=== PATIENT | female | born 1960 | race Hispanic/Latino ===

== ENCOUNTER 2016-07-10 14:39 | Outpatient (CLI) | payer BC ==
--- NOTE | 2016-07-11 09:37 | Mammography Report ---
BILATERAL DIGITAL SCREENING MAMMOGRAM with CAD: 07/10/16 14:39:00 CLINICAL: Routine screening.Breast cancer survivor status post left partial mastectomy December 2014 followed by radiation therapy. COMPARISON:07/04/15 FINDINGS: The breasts are almost entirely fatty with the left breast smaller than the right.A few bilateral scattered benign calcifications. No mass, architectural distortion or suspicious calcifications. IMPRESSION: No mammographic evidence of malignancy. BI-RADS CATEGORY: 2 - - Benign RECOMMENDATION: Routine mammographic screening in one year. COMMENT: Patient follow-up letters are generated by our [employer] application.
== END 2016-07-10 14:40 | disposition home or self-care (01) ==
LOC: SPVWC 14:39
PROVIDERS: ATTEND Surgery
DX: Z12.31 Encounter for screening mammogram for malignant neoplasm of breast (principal)
CPT/HCPCS: 77067; G0202

== ENCOUNTER 2019-05-14 12:48 | Outpatient (CLI) | payer MEDICAID ==
--- NOTE | 2019-05-14 14:17 | Ultrasound Report ---
LEFT BREAST ULTRASOUND HISTORY: Left breast cancer and suspicious left axillary lymph nodes by MRI. Her MRI was done at [facility]. She had a left stereotactic breast biopsy here on 01/01/2019 with pathology confirming intermed iate grade DCIS. COMPARISON: None. FINDINGS: Sonographic evaluation focused upon the axillary location of the left breast demonstrates a suspicious lymph node with no central fat measuring 1.2 cm maximum. IMPRESSION: A suspicious left axillary lymph node. Recommend ultrasound-guided needle biopsy. BIRADS 4: Suspicious abnormality. Signer Name: Jim Randolph MD Signed: 05/14/2019 2:13 PM Workstation Name: [id number]
--- NOTE | 2019-05-14 14:19 | Ultrasound Report ---
ULTRASOUND-GUIDED NEEDLE CORE BIOPSY LEFT AXILLARY LYMPH NODE WITH CLIP PLACEMENT CLINICAL: Left breast cancer. FINDINGS: The procedure was explained to the patient and informed consent was obtained. Ultrasound demonstrated a previously identified suspicious lymph nodes.. I marked the breast with a felt tip marker and a timeout was called. The skin was prepped with Chloro -Prep and anesthetized with 1% lidocaine. Needle core biopsy was performed through small dermatotomy using ultrasound guidance, 2% lidocaine wi th epinephrine for deep anesthesia and a 18-gauge Achieve biopsy device. 3 cores were obtained and pl aced in formalin. A clip was deployed within the lymph node. The patient tolerated the procedure well and there were no apparent complications. Hemostasis was ach ieved with minimal effort and a sterile dressing was applied. A post procedure mammogram demonstrated concordant clip deployment. She left the department in good c ondition and was given instructions for wound care and follow-up. IMPRESSION: Uncomplicated ultrasound guided needle core biopsy with clip placement left axillary lymp h node. Signer Name: Jim Randolph MD Signed: 05/14/2019 2:15 PM Workstation Name: [id number]
== END 2019-05-14 12:49 | disposition home or self-care (01) ==
LOC: SPVWC 12:48
PROVIDERS: ATTEND Surgery
DX: C50.412 Malignant neoplasm of upper-outer quadrant of left female breast (principal); I89.8 Other specified noninfective disorders of lymphatic vessels and lymph nodes; J44.9 Chronic obstructive pulmonary disease, unspecified; I10 Essential (primary) hypertension; E66.9 Obesity, unspecified; Z79.899 Other long term (current) drug therapy; Z79.82 Long term (current) use of aspirin; Z90.710 Acquired absence of both cervix and uterus; Z90.721 Acquired absence of ovaries, unilateral; Z87.442 Personal history of urinary calculi; Z98.890 Other specified postprocedural states
CPT/HCPCS: 38505; 76942; 88305; 88342

== ENCOUNTER 2019-06-25 12:29 | Day surgery (SDC) | payer MEDICAID ==
[~2019-06-25 12:29] MED LIST: WATER FOR IRRIG STERILE 1,500 ML BOTTLE IR ONE
[2019-06-25] MEDS ORDERED: VANCOMYCIN/NS 1 GM/250 ML 1 GM/250 ML BAG IV NR (13:41)
[2019-06-25] MEDS ORDERED: VANCOMYCIN 2,000 MG in SODIUM CHLORIDE 0.9% 500 ML 500 ML IV SCH (13:45)
[2019-06-25] MEDS ORDERED: fentaNYL 100 MCG/2 ML INJ IV PRN (14:01)
[2019-06-25] MEDS ORDERED: ONDANSETRON 4 MG/2 ML INJ IV PRN (14:01)
--- NOTE | 2019-06-25 14:02 | Anesthesia Day of Surgery ---
Anesthesia Day of Surgery - Day of Surgery Patient Examined: Yes Patient H&P Reviewed: Yes Patient is NPO: Yes
[2019-06-25] MEDS ORDERED: LACTATED RINGERS 1,000 ML ONE (14:03)
--- NOTE | 2019-06-25 14:03 | Anesthesia Consultation ---
Anesthesia Consult and Med Hx Date of service: 06/25/19 - Airway Anesthetic Teeth Evaluation: Poor, Chipped ROM Head & Neck: Adequate Mental/Hyoid Distance: Adequate Mallampati Class: Class II Intubation Access Assessment: Probably Good - Pre-Operative Health Status ASA Pre-Surgery Classification: ASA3 Proposed Anesthetic Plan: General - Pulmonary Hx Smoking: Yes (1 PP3D SINCE AGE 16) Hx Asthma: Yes (PRN NEBS AND INH) COPD: Yes (Probably can climb stairs. Can walk around store) Hx Sleep Apnea: No (HIGH RISK) - Cardiovascular System Hx Hypertension: Yes (OVER 15 YRS) Hx Coronary Artery Disease: No (high cholesterol) Hx Cardia Arrhythmia: No Hx Heart Murmur: Yes (CONGENITAL) - Central Nervous System Hx Back Pain: Yes Hx Psychiatric Problems: No - Gastrointestinal Hx Gastroesophageal Reflux Disease: Yes - Endocrine Hx Renal Disease: No (kidney stones) Hx Liver Disease: No Hx Non-Insulin Dependent Diabetes: Yes ("PRE") - Other Systems Hx Alcohol Use: No Hx Substance Use: No Hx Cancer: Yes Hx Obesity: Yes (Morbid obesity BMI 40.7)
[2019-06-25] MEDS ORDERED: propofoL 200 MG/20 ML VIAL IV ONE (14:16)
[2019-06-25] MEDS ORDERED: LIDOCAINE MPF (2%) 20 MG/1 ML VIAL 5 ML ONE (14:16)
[2019-06-25] MEDS ORDERED: fentaNYL 100 MCG/2 ML INJ ONE ×2 (14:16→15:06)
[2019-06-25] MEDS ORDERED: ONDANSETRON 4 MG/2 ML INJ ONE (14:17)
[2019-06-25] MEDS ORDERED: dexAMETHasone 20 MG/5 ML VIAL ONE (14:17)
[2019-06-25] MEDS ORDERED: SODIUM CHLORIDE P/F VIAL 10 ML 10 ML ONE (14:21)
[2019-06-25] MEDS ORDERED: METHYLENE BLUE 50 MG/10 ML AMP ONE (14:21)
[2019-06-25] MEDS ORDERED: PHENYLEPHRINE/NS 1,000 MCG/10 ML SYRINGE (OR USE) IV ONE (14:30)
[2019-06-25] MEDS ORDERED: METHYLENE BLUE 50 MG/10 ML AMP IRRIGATION ONE (14:40)
[2019-06-25] MEDS ORDERED: SODIUM CHLORIDE 0.9% P/F 10 ML VIAL INFILTRATI ONE (14:40)
[2019-06-25] MEDS ORDERED: LACTATED RINGERS 1,000 ML IV SCH (15:00)
--- NOTE | 2019-06-25 16:06 | Operative Report ---
Operative Report Operative Report: Operative Report: June 25, 2019 Preoperative diagnosis: Left breast cancer of the lower outer quadrant and indication for sentinel lymph node biopsy Postoperative diagnosis: Same Procedure: Left sentinel lymph node biopsy Surgeon: Ester Silva MD Sailing Officer: Dr. Astorga Anesthesia: General Findings: x3 SLNs and sent to pathology for permanent section Complications: None EBL: Minimal Disposition: PACU in good condition Indications for operative procedure: This is a 59 year old lady with newly diagnosed left breast cancer of the lower outer quadrant, Stage 0 [id number] ER/CO positive-->Stage I IDCA grade 2 [id number] ER positive and history of left breast cancer of the upper outer quadrant Stage 0. She recently underwent left partial mastectomy with findings of IDCA grade 1 [id number] ER positive and indication for SLNB given invasive carcinoma (initially DCIS from breast biopsy). Partial breast irradiation recommended by radiation oncology and patient understood if margins were close or additional cancer present mastectomy may be recommended and mammosite balloon placed at initial surgery. Patient understood if SLNs with malignancy partial breast irradiation not recommended. She wished to proceed with the above procedure. Patient was taken to the operating room. Gen. anesthesia was administered. The left nipple was injected with radioisotope and 1 cc of methylene blue dye mixed with 1 cc of saline. Left breast and axilla were prepped and draped in the normal sterile operative fashion. The lower outer quadrant radiation balloon mammosite was present. Timeout was performed. Gamma probe was inserted into the axilla. The area of hot spot was identified. A left axillary incision was made with a 15 blade knife with dissection taken down to the subcutaneous tissues. The axillary fascia was opened with the Bovie cautery. 3 SLNs were identified. All remaining counts were less than 10% of the highest count. Lymph nodes were sent to pathology for permanent processing. Hemostasis was obtained in the left axillary cavity. Axillary cavity was appropriately irrigated and suctioned. Hemostasis was noted. Axillary fascia was approximated and closed using interrupted 3-0 Vicryl and the skin brought together and closed using a running 4-0 Monocryl followed by skin affix. Radiation balloon was redressed. She was awaken from anesthesia and then transferred to PACU in good condition.
--- NOTE | 2019-06-25 16:07 | Short Stay Summary ---
Short Stay Documentation Date of service: 06/25/19 - History H&P: obtained from office - Allergies and Medications Current Medications: Allergies ampicillin Allergy (Verified 06/19/19 13:37) Anaphylaxis codeine Allergy (Verified 06/19/19 13:37) Anaphylaxis Home Medications Medication Instructions Recorded Confirmed Last Taken Type Albuterol INH(or & Nicu Only) 2 puff IH QID PRN 01/25/15 06/25/19 06/24/19 10:30 History [ProAir HFA Inhaler] Aspirin [Adult Low Dose Aspirin EC] 81 mg PO QDAY 01/25/15 06/25/19 06/07/19 12:00 History Ergocalciferol [Vitamin D2] 1 cap PO QWEEK 01/25/15 06/25/19 06/24/19 12:00 History Montelukast [Singulair] 10 mg PO QPM 01/25/15 06/25/19 06/24/19 12:00 History Omeprazole [PriLOSEC] 20 mg PO QDAY 01/25/15 06/25/19 06/25/19 10:00 History Albuterol Sulfate [Albuterol 0.63% 0.63 mg IH TID PRN #1 box 03/30/15 06/25/19 06/24/19 08:00 Rx NEBS] Letrozole (Nf) [Femara (Nf)] 2.5 mg PO QDAY 06/16/19 06/25/19 06/24/19 12:00 History Losartan [Cozaar] 25 mg PO QDAY 06/16/19 06/25/19 06/24/19 12:00 History Rosuvastatin Calcium [Crestor] 10 mg PO QDAY 06/16/19 06/25/19 06/24/19 12:00 History RX: traMADoL [Ultram 50 MG tab] 50 mg PO Q6HR PRN #15 tablet 06/17/19 06/23/19 Unknown Rx Sulfamethoxazole/Trimethoprim 1 each PO BID #14 tablet 06/17/19 06/25/19 06/24/19 12:00 Rx [Bactrim DS TAB] Active Medications Fentanyl (Sublimaze) 50 mcg IV Q5MIN PRN PRN Reason: Pain , Severe (7-10) Stop: 06/25/19 23:59 Vancomycin HCl 2,000 mg/ (Sodium Chloride) 540 mls @ 250 mls/hr IV PREOP KATINA Stop: 06/25/19 23:39 Last Admin: 06/25/19 14:20 Dose: 250 mls/hr Documented by: Lactated Ringer's (Lactated Ringers) 1,000 mls @ 125 mls/hr IV DIRECT KATINA Last Admin: 06/25/19 14:20 Dose: 125 mls/hr Documented by: Ondansetron HCl (Zofran) 4 mg IV ONCE PRN PRN Reason: Nausea And Vomiting - Brief post op/procedure progress note Date of procedure: 06/25/19 Pre-op diagnosis: Left [place] lymph node biopsy Post-op diagnosis: same Procedure: Left SLNB Anesthesia: GETA Findings: x3 SLNS Surgeon: BECCA CRESPO Estimated blood loss: minimal Pathology: list (x3 SLNs) Specimen disposition: to lab Condition: stable - Disposition Condition at discharge: Good Disposition: DC-01 TO HOME OR SELFCARE Short Stay Discharge Plan Activity: other (no heavy lifting) Diet: regular Wound: keep clean and dry (wear breast binder) Follow up with: MADHU FREEMAN MD [Primary Care Provider] - 7 Days BECCA CRESPO MD [Staff Physician] - 7 Days
[2019-06-25] MEDS ORDERED: BACITRACIN ZINC OINT 28.4 GM TP ONE (16:25)
[2019-06-25 16:53] VITALS: BP 117/58
== END 2019-06-25 17:40 | disposition home or self-care (01) ==
LOC: OR 12:29
PROVIDERS: ATTEND Surgery
DX: C50.512 Malignant neoplasm of lower-outer quadrant of left female breast (principal); J45.909 Unspecified asthma, uncomplicated; I10 Essential (primary) hypertension; J44.9 Chronic obstructive pulmonary disease, unspecified; K21.9 Gastro-esophageal reflux disease without esophagitis; E11.9 Type 2 diabetes mellitus without complications; E66.9 Obesity, unspecified; E78.00 Pure hypercholesterolemia, unspecified; F17.210 Nicotine dependence, cigarettes, uncomplicated; Z88.1 Allergy status to other antibiotic agents; Z88.5 Allergy status to narcotic agent; Z79.899 Other long term (current) drug therapy; Z79.84 Long term (current) use of oral hypoglycemic drugs; Z90.49 Acquired absence of other specified parts of digestive tract; Z98.890 Other specified postprocedural states; Z80.3 Family history of malignant neoplasm of breast; Z68.41 Body mass index [BMI] 40.0-44.9, adult
CPT/HCPCS: 38525; 38792; 78800; 82962; 88307; 88333; A9541; J1100; J2370; J2405; J2704; J3010; J3370; J7040; J7120; Q9968

== ENCOUNTER 2019-11-13 09:36 | Outpatient (CLI) | payer OTHER | END 2019-11-13 09:37 | disposition home or self-care (01) | LOC: LABHHL 09:36 | PROVIDERS: ATTEND Surgery | DX: N61.1 Abscess of the breast and nipple (principal) | CPT/HCPCS: 87075; 87076; 87116; 87186 ==

== ENCOUNTER 2021-02-06 12:37 | Outpatient (CLI) | payer MEDICAID ==
--- NOTE | 2021-02-06 15:46 | Mammography Report ---
DIGITAL SCREENING MAMMOGRAM WITH CAD, 02/06/2021 CLINICAL INFORMATION / INDICATION: Routine screening mammography. SCREENING MAMMO TECHNIQUE: Digital bilateral 2D mammography was obtained in the craniocaudal and mediolateral obliqu e projections. This examination was interpreted with the benefit of Computer-Aided Detection analysis . COMPARISON: 07/04/2015 through 11/12/2019. FINDINGS: Breast Density: The breasts are almost entirely fatty. No dominant mass, suspicious calcifications, or architectural distortion in either breast. There are benign scattered calcifications bilaterally. Postlumpectomy/radiation changes in the left l ateral breast are again identified. IMPRESSION: No mammographic evidence of malignancy. Follow up recommendation: Routine yearly BI-RADS Category 2: Benign. A "normal" or negative report should not discourage follow up or biopsy of a clinically significant f inding. A written summary of these findings will be mailed to the patient. The patient will be entered into a mammography reporting system which will generate a reminder letter for the patient's next appointmen t at the appropriate interval. The [employer] recommends yearly mammograms starting at age 40 and continuing as l meredith as a woman is in good health. Breast MRI is recommended for women with an approximate 20-25% or greater lifetime risk of breast cancer, including women with a strong family history of breast or ova addie cancer or who have been treated for Hodgkin's disease. Signer Name: Narendra Chacon MD Signed: 02/06/2021 3:41 PM Workstation Name: [id number]
== END 2021-02-06 12:38 | disposition home or self-care (01) ==
LOC: SPVWC 12:37
PROVIDERS: ATTEND Internal Medicine Hematology & Oncology
DX: Z12.31 Encounter for screening mammogram for malignant neoplasm of breast (principal)
CPT/HCPCS: 77067